=== PATIENT | female | born 1985 | race Caucasian/White ===

== ENCOUNTER 2016-02-28 15:24 | Emergency (ER) | payer OTHER ==
[~2016-02-28] VITALS: Ht 167.6 cm; Wt 81.6 kg
[~2016-02-28 15:24] MED LIST: ACETAMINOPHEN/B1 TA1 PO; ATIVAN0.5 M1 PO; IBUPROFEN800 MG PO; PERCOCET 325 MG1 TA2 PO; VITAFOL-ONE1 SGL PO
--- NOTE | 2016-02-28 16:28 | ED HEADACHE COMPLAINT ---
History of Present Illness General Chief Complaint: Headache Stated Complaint: PERSISTENT MORENO, TODAY WITH BLURRED VISION Source: patient Exam Limitations: no limitations Vital Signs & Intake/Output Vital Signs & Intake/Output Vital Signs Date Time Temp Pulse Resp B/P Pulse O2 O2 Flow FiO2 Ox Delivery Rate 02/27 1639 97.8 90 20 124/86 100 Room Air 02/27 1549 97.4 108 16 143/94 99 Room Air ED Intake and Output 02/28 0000 02/27 1200 Intake Total Output Total Balance Patient 180 lb Weight Allergies Coded Allergies: NO KNOWN ALLERGIES (08/09/13) Reconcile Medications Butalb/Acetaminophen/Caffeine (Fioricet 50-300-40 MG Capsule) 50 MG-300 MG-40 MG CAPSULE 1-2 TAB PO Q6P PRN HEADACHE Ibuprofen (Advil) 200 MG CAPSULE 2 CAP PO PRN PAIN/INFLAMMATION (Reported) Lorazepam 0.5 MG TABLET 1 TAB PO PRN ANXIETY (Reported) Triage Note: PT TO TRIAGE WITH C/O MIGRAINE xFEW MONTH, TODAY SHE IS DIZZY AND HAS BLURRY VISION, WENT TO WALKIN CLINIC AND WAS REFERRED TO ER. PAIN TO R SIDE OF HEAD 06/29. PT HAS BEEN TAKING MOTRIN WITH NO RELIEF. VSS. Triage Nurses Notes Reviewed? yes Onset: Abrupt Duration: months Timing: recent history Quality/Severity: moderate, pressure, sharp Head Injury Location: temporal No Modifying Factors: none : No Patient currently breastfeeds: No HPI: 31-year-old female comes into emergency room for further evaluation of headaches that have been going on for many months. Headache is right temporal. Pain is sharp. Pressure. Nonradiating. Patient reports that she has some associated blurred vision at time. Patient has been seen multiple times by different people and was told that it was stress and anxiety and tension headaches. Patient has not had any imaging at this time. Patient went to a walk-in clinic today who referred her to a neurologist but told her that she should go to the hospital to get a CAT scan. Denies any fever or chills. Denies any vomiting. Denies any unsteady gait. Denies any confusion. Denies any other associated symptoms. (ANDREIA BREWER,LEONARD) Past History Travel History Traveled to [place] past 21 day No Medical History Any Pertinent Medical History? see below for history Neurological: migraine Psychiatric: anxiety Tetanus Vaccine: Surgical History Surgical History: N Psychosocial History What is your primary language Kyrgyz Tobacco Use: Never used Family History Family History, If Any: No Known Family History. Hx Contributory? No (LEONARD PATEL) Review of Systems Review of Systems Constitutional: Reports: no symptoms. Eyes: Reports: no symptoms. Ears, Nose, Throat, Mouth: Reports: no symptoms. Respiratory: Reports: no symptoms. Cardiovascular: Reports: no symptoms. Gastrointestinal/Abdominal: Reports: no symptoms. Genitourinary: Reports: no symptoms. Musculoskeletal: Reports: no symptoms. Skin: Reports: no symptoms. Neurological/Psychological: Reports: see HPI. Hematologic/Endocrine: Reports: no symptoms. Endocrine: Reports: no symptoms. Immunologic/Allergic: Reports: no symptoms. All Other Systems: Reviewed and Negative (LEONARD PATEL) Physical Exam Physical Exam General Appearance: well developed/nourished, no apparent distress, alert, awake Head: atraumatic, normal appearance Eyes: Bilateral: normal appearance, PERRL, EOMI. Ears, Nose, Throat: normal pharynx, normal ENT inspection, hearing grossly normal Neck: normal inspection, supple, full range of motion Respiratory: normal breath sounds, no respiratory distress Cardiovascular: regular rate/rhythm Back: normal inspection Extremities: normal inspection, normal capillary refill, normal range of motion Psychiatric: awake, alert, oriented x 3 Cranial Nerves: normal hearing, normal speech, PERRL Coordination/Gait: normal finger to nose, normal gait Motor/Sensory: no motor/sensory deficits Skin: intact, normal color Core Measures Severe Sepsis Present: No Septic Shock Present: No (LEONARD PATEL) Progress Differential Diagnosis: carotid dissection, cav sinus thromb, cluster MORENO, encephalitis, IC mass/tumor, intracranial Hem., meningitis, migraine MORENO, musculoskeletal pain, sinusitis, SSS thrombosis, subarach. Hem., tension MORENO, temporal arteritis, TMJ syndrome, viral cephalgia Plan of Care: Orders Procedure Date/time Status URINE 02/27 1608 Complete Laboratory Tests 02/28/16 1622: Urine Test NEGATIVE Diagnostic Imaging: Viewed by Me: CT Scan. Discussed w/RAD: CT Scan. Radiology Impression: SERVICE DATE: 02/28/16-1614 EXAM TYPE: CAT - CT HEAD WO IV CONTRAST EXAMINATION: CT HEAD WITHOUT CONTRAST CLINICAL INFORMATION: 31-year- old female, presented with headache for months. Referred by urgent care for CAT scan. COMPARISON: None. TECHNIQUE: Contiguous axial imaging was performed from the skull base to vertex without intravenous administration of contrast. DLP: 600.71 mGy-cm. FINDINGS: There is no evidence of acute intracranial hemorrhage or territorial infarction. No abnormal mass effect or midline shift is seen. Law to white matter differentiation is well preserved. No extra-axial fluid collections are identified. The ventricles are normal in size. There is no abnormal attenuation within the brain parenchyma. The osseous structures and soft tissues are normal. The mastoid air cells and visualized portions of the paranasal sinuses are well aerated. IMPRESSION: No acute intracranial pathology. (ANDREIA BREWER,LEONARD) Departure Departure Disposition: HOME OR SELF CARE Condition: Stable Clinical Impression Primary Impression: Headache Referrals: DANIEL SERRATO,ELENO Yarbrough. PATIENT HAS NO PRIMARY CARE DR (PCP/Family) Additional Instructions: Follow-up with neurologist provided. Take Fioricet as prescribed. Return if any concerns worsening symptoms. Please go over all results of today's visit with your primary care doctor. Contact your primary care doctor to let them know you were here in the emergency room. There may be nonspecific findings which may not be related to your visit today here in the emergency room but may require further evaluation and chronic monitoring by your primary care doctor. If you had a laceration today the chance of foreign body always remains. You should follow-up with your primary care doctor for recheck in 3-5 days for a wound check. If you had an x-ray done there is a chance that a fracture could have been missed on initial read and you should follow-up with your primary care doctor for repeat x-rays if symptoms persist. If your blood pressure was elevated here in the emergency room please have rechecked by her primary care doctor within the next 48 hours by your primary care doctor. If you were prescribed a narcotic here in the emergency room or any type of controlled substances you're not allowed to drive while taking this medication or operate any type of heavy machinery. Narcotics can make you feel lightheaded dizziness nausea and can cause constipation. You may need to pecan picker a stool softener. Thank you for choosing emergency room. Please return to the emergency room immediately if you have any other concerns worsening of symptoms. Departure Forms: Customer Survey General Discharge Information Prescriptions: Current Visit Scripts Butalb/Acetaminophen/Caffeine (Fioricet 50-300-40 MG Capsule) 1-2 TAB PO Q6P PRN HEADACHE #20 MG Comments 02/28/2016 5:35:53 PM Patient clinically looks well. Patient is nontoxic-appearing. Patient is in no apparent distress. Patient resting comfortably in room. Symptoms have been going on for many months. Patient is neurologically intact. Patient referred to neurology. (ANDREIA BREWER,LEONARD) PA/YARN PREPARATION SUPERVISOR Co-Sign Statement Statement: ED Attending supervision documentation- [] I saw and evaluated the patient. I have also reviewed all the pertinent lab results and diagnostic results. I agree with the findings and the plan of care as documented in the PA's/YARN PREPARATION SUPERVISOR's documentation. [X] I have reviewed the ED Record and agree with the PA's/YARN PREPARATION SUPERVISOR's documentation. [] Additions or exceptions (if any) to the PAs/YARN PREPARATION SUPERVISOR's note and plan are summarized below: [] (REESE SERRATO,JEREMIE)
[2016-02-28 16:39] VITALS: BP 124/86
[2016-02-28] MEDS ORDERED: LORAZEPAM0.5 M1 PO (16:51)
[2016-02-28] MEDS ORDERED: ADVIL200 M1 PO (16:52)
--- NOTE | 2016-02-28 17:24 | CT SCAN REPORT ---
EXAMINATION: CT HEAD WITHOUT CONTRAST CLINICAL INFORMATION: 31-year-old female, presented with headache for months. Referred by urgent care for CAT scan. COMPARISON: None. TECHNIQUE: Contiguous axial imaging was performed from the skull base to vertex without intravenous administration of contrast. DLP: 600.71 mGy-cm. FINDINGS: There is no evidence of acute intracranial hemorrhage or territorial infarction. No abnormal mass effect or midline shift is seen. Law to white matter differentiation is well preserved. No extra-axial fluid collections are identified. The ventricles are normal in size. There is no abnormal attenuation within the brain parenchyma. The osseous structures and soft tissues are normal. The mastoid air cells and visualized portions of the paranasal sinuses are well aerated. IMPRESSION: No acute intracranial pathology.
[2016-02-28] MEDS ORDERED: FIORICET 50-301 EACH PO (17:34)
== END 2016-02-28 17:45 ==
LOC: ERH 15:24
DX: R51 Headache (principal)
CPT/HCPCS: 81025